=== PATIENT | female | born 1965 | race Caucasian/White ===

== ENCOUNTER 2023-04-23 13:40 | Emergency (ER) | payer BC, SELFPAY ==
[2023-04-23] VITALS (45 sets, daily range): BP systolic 117–164; BP diastolic 82–113; PULSE 58–79; RESP 5–22; TEMP 37.1; O2SAT 99
--- NOTE | 2023-04-23 13:45 | RT.EKG_ITS ---
APPROVED REPORT Exam: Resting ECG Reason for Exam: Chest Pain Patient Location: E HR:68 bpm ECG Measurements Heart Rate 68 AXIS MI 165 P 36 QRSd 95 QRS 53 QT 398 T 38 QTc 424 Conclusion Sinus rhythm...normal P axis, V-rate 60- 99 NSR, NL intervals, NL axis, No STEMI.
--- NOTE | 2023-04-23 14:15 | DI.CT_ITS ---
Exam(s) CT THORAX ABD/PEL CTA EXAM: CT THORAX ABD/PEL CTA CLINICAL HISTORY: chest pain to back, hypertension. TECHNIQUE: Imaging Protocol: Axial computed tomography images with coronal and sagittal reformatted images were created and reviewed CONTRAST MATERIAL: Intravenous: Omnipaque 350 Contrast volume:100 ml Oral: None COMPARISON: No exams were available for comparison FINDINGS: CHEST: AORTA: There is no evidence of aortic dissection. Diameter of the ascending thoracic aorta is normal . No dissection. Aortic arch appears unremarkable. Descending thoracic aorta unremarkable. Abdomi nal aorta also unremarkable with no aneurysm nor significant atherosclerotic involvement of the aorta and major vessels. Aortic bifurcation and aortoiliac segments are unremarkable. No aneurysmal dila tation of the iliac and common femoral arteries. LUNGS: No obvious pulmonary emboli. No confluent infiltrates nor evidence of pulmonary infarction. No ominous pulmonary nodules evident. There are no pleural effusions. No significant focal findings in the trachea and mainstem bronchi.. MEDIASTINUM: There is no hilar nor mediastinal adenopathy. Visualized thyroid unremarkable. CARDIAC: Heart size is normal. There is no pericardial effusion. No significant shift of the interv entricular septum. No evidence of hiatal hernia. ABDOMEN: There is no evidence of abdominal aortic aneurysm nor dissection.There is no aneurysmal dilatation of the common iliac arteries.The celiac and superior mesenteric arteries are patent.Inferior mesenteric artery is patent. Renal arteries are patent. No evidence of ischemic appearing bowel. There is no ascites. LIVER: There is a subcapsular hypodensity in the posterior right hepatic lobe measuring 1.2 x 1.0 cm. Has benign appearance probable cyst versus hemangioma but difficult to differentiate on this type o f arterial phase only study. There are no other obvious focal hepatic findings. GALLBLADDER/BILIARY: No obvious gallbladder pathology. CBD is not dilated. PANCREAS: No evidence of pancreatic mass nor dilatation of the pancreatic duct. SPLEEN: Spleen is not enlarged. There are no intrasplenic lesions. Splenic and portal veins are padgett nt. ADRENALS: There are no significant adrenal masses. KIDNEYS: No cysts evident. No calculi nor hydronephrosis. No solid renal masses. ABDOMINAL AORTA: The abdominal aorta is not enlarged. LYMPH NODES: There is no retroperitoneal nor para-aortic adenopathy. No obvious mesenteric masses. ABDOMINAL WALL: No evidence of significant anterior abdominal wall hernia. GI: There is no evidence of bowel obstruction, free air, nor abscess.The cecum is in the low right si de of the pelvis. No evidence of acute appendicitis. There is no evidence of significant sigmoid di verticular disease. PELVIS: LYMPH NODES: There is no intrapelvic nor inguinal adenopathy. GI: No evidence of appendicitis.No evidence of sigmoid diverticulitis. URINARY BLADDER: No calculi nor masses evident REPRODUCTIVE: Appears to be uterine fibroids. No abnormal adnexal masses nor free fluid in the pelvi s. OSSEOUS: No significant osseous lesions. No fractures. IMPRESSION: 1. No evidence of aortic dissection, as per request. No pericardial effusion. 2. No evidence of aneurysmal dilatation of the aorta and iliac arteries. Also no significant atheros clerotic involvement of the aorta and main branches. 3. No obvious pulmonary emboli. No infiltrates nor pleural effusions. 4. No acute findings in the abdomen and pelvis. 5. Probable small uterine fibroids. Called by myself to ER RADIATION DOSE DELIVERED: 1,125.58mGy.cm Total DLP DATA REPOSITORY: All CT scans at this facility are submitted to the National Radiology Data Registry (NRDR) Dose Index Registry (DIR) with the [employer] ([employer]). RADIATION OPTIMIZATION: All CT scans at this facility use at least one of these dose optimization te chniques: automated exposure control; mA and/or kV adjustment per patient size (includes targeted exa ms where dose is matched to clinical indication); or iterative reconstruction.
[2023-04-23 14:58] LABS: Abs Immature Grans 0.01 10^3/uL (0.0-0.06); Absolute Basophil Count 0.06 10^3/uL (0.0-0.2); Absolute Eosinophil Count 0.21 10^3/uL (0.0-0.7); Absolute Lymphocyte Count 2.53 10^3/uL (1.2-3.4); Absolute Monocyte Count 0.49 10^3/uL (0.1-0.8); Absolute Neutrophil Count 3.45 10^3/uL (1.2-6.7); Basophils % 0.9; Eosinophils % 3.1; HCT 43.4 % (36.0-46.0); HGB 14.6 g/dL (11.2-15.7); Immature Grans % 0.1; Lymphocytes % 37.5; MCH 28.8 pg (27.0-33.0); MCHC 33.6 % (32.0-36.0); MCV 86 fL (80-95); MPV 10.2 fL (8.0-11.0); Monocytes % 7.3; Neutrophils % 51.1; Platelet Count 292 10^3/uL (130-400); RBC 5.07 10^6/uL (3.93-5.22); RDW 13.8 % (11.7-14.6); RDW-SD 42.9 fL; WBC 6.75 10^3/uL (4.4-10.8)
[2023-04-23 15:22] LABS: ALT 42 U/L (14-59); AST 27 U/L (15-37); Alkaline Phosphatase 103 U/L (46-116); Anion Gap 8.8 mmol/L (3-11); BUN 12 mg/dL (7-18); Bilirubin, Total 0.3 mg/dL (0.2-1.0); CO2 27.2 mmol/L (21.0-32.0); CREATININE 0.8 mg/dL (0.55-1.02); Calcium 9.5 mg/dL (8.5-10.1); Chloride 104 mmol/L (98-107); Estimated GFR 85.35 (mL/min/1.73m2); Glucose 92 mg/dL (74-106); Magnesium 2.2 mg/dL (1.8-2.4); Potassium 3.6 mmol/L (3.5-5.1); Sodium 140 mmol/L (136-145); Total Protein 7.9 g/dL (6.4-8.2); Troponin I < 50 ng/L (<or=60)
--- NOTE | 2023-04-23 15:25 | W.ED.GENAD ---
Discharge Plan Discharge Details Chief Complaint: Chest Pain Primary Care Provider: Danyell Clark ED Provider: Neftaly Massey Medical Decision Making 57-year-old female here with chest pain that started last night that radiates to her back with associated elevated blood pressure from her baseline. Patient is saturating well in no respiratory distress. Consider ACS. Initial EKG was reviewed and interpreted by me: Please see report, nondiagnostic, no STEMI. Plan to check troponin and trend. Consider acute aortic dissection. Plan to obtain stat CTA of the thorax, abdomen and pelvis. --Labs reviewed and initial troponin negative. 1515 --notified by nursing that patient having increasing chest discomfort. I will give nitroglycerin sublingual. 1535 -- Care was signed out to oncoming physician, Dr. Barnes. Lab Data Lab results reviewed: Yes I reviewed the patient's lab results. Labs: Laboratory Tests Range/Units 04/23/23 04/23/23 14:07 14:07 WBC (4.4-10.8) 10^3/uL 6.75 RBC (3.93-5.22) 10^6/uL 5.07 Hgb (11.2-15.7) g/dL 14.6 Hct (36.0-46.0) % 43.4 MCV (80-95) fL 86 MCH (27.0-33.0) pg 28.8 MCHC (32.0-36.0) % 33.6 RDW (11.7-14.6) % 13.8 Plt Count (130-400) 10^3/uL 292 MPV (8.0-11.0) fL 10.2 Immature Gran % 0.1 Neutrophils % 51.1 Lymphocytes % 37.5 Monocytes % 7.3 Eosinophils % 3.1 Basophils % 0.9 Nucleated RBC % (0.0-0.3) % 0.0 Absolute Neutrophils (1.2-6.7) 10^3/uL 3.45 Absolute Lymphocytes (1.2-3.4) 10^3/uL 2.53 Absolute Monocytes (0.1-0.8) 10^3/uL 0.49 Absolute Eosinophils (0.0-0.7) 10^3/uL 0.21 Absolute Basophils (0.0-0.2) 10^3/uL 0.06 Sodium (136-145) mmol/L 140 Potassium (3.5-5.1) mmol/L 3.6 Chloride (98-107) mmol/L 104 Carbon Dioxide (21.0-32.0) mmol/L 27.2 Anion Gap (3-11) mmol/L 8.8 BUN (7-18) mg/dL 12 Creatinine (0.55-1.02) mg/dL 0.8 Est GFR (CKD-EPI 2020) (mL/min/1.73m2) 85.35 Glucose (74-106) mg/dL 92 Calcium (8.5-10.1) mg/dL 9.5 Magnesium (1.8-2.4) mg/dL 2.2 Total Bilirubin (0.2-1.0) mg/dL 0.3 AST (15-37) U/L 27 ALT (14-59) U/L 42 Alkaline Phosphatase (46-116) U/L 103 Troponin I (<or=60) ng/L < 50 Total Protein (6.4-8.2) g/dL 7.9 Albumin (3.4-5.0) g/dL 4.0 HPI General Mode of arrival: ambulatory. Date/Time Provider Initiated Documentation: 04/23/23 14:10. Limitations to Documentation: no limitations. Information obtained by: patient. HPI Narrative: 57-year-old female presents with chief complaint of chest pain. Patient notes substernal 6 out of 10 chest pain described as a pressure and stabbing sensation that radiates to her back. Symptoms started yesterday after playing tennis all day and persisted through the night. She has no associated shortness of breath. No leg swelling or calf pain. No abdominal pain, nausea or vomiting. Related Data Allergies Allergy/AdvReac Type Severity Reaction Status Date / Time No Known Drug Allergies Allergy Unverified 04/23/23 13:54 General Stated Complaint: Chest Pain BIRGIT: 3 Review of Systems All systems reviewed & are unremarkable except as noted in HPI and below Constitutional Constitutional: Denies fever(s) Cardiovascular Cardiovascular: Reports chest pain and Denies dyspnea Respiratory Respiratory: Denies dyspnea [facility] Social History Smoking/Tobacco Use Status: Never Smoking risk assessment performed?: Yes Exam Const General: cooperative and no acute distress HENMT Mouth: moist mucous membranes Eyes Conjunctivae: normal conjunctivae Sclera: normal sclerae Neck Neck: trachea midline and supple Resp Auscultation: clear to auscultation bilaterally, no rales, no rhonchi and no wheezes Cardio Rate: regular rate and not tachycardic Rhythm: regular rhythm GI Palpation: soft, not firm, no guarding, no masses, not rigid and nontender Skin General skin exam: no rashes or lesions noted Neuro General: patient alert, patient awake and tone normal Extrem General: no calf tenderness and no edema Other: hyperflexibility Psych Appearance: grossly normal Mental Status: mental status grossly normal Course Vital Signs Vital signs: Vital Signs Temperature 37.1 C 04/23/23 13:48 Pulse 72 04/23/23 13:48 Respiratory Rate 20 04/23/23 13:48 Blood Pressure 148/113 H 04/23/23 13:48 Pulse Oximetry 99 04/23/23 13:48 Temperature 37.1 C 04/23/23 13:48 Pulse 63 04/23/23 15:16 Pulse 65 04/23/23 15:20 Respiratory Rate 21 04/23/23 15:20 Respiratory Effort Normal, Non-Labored 04/23/23 14:08 Respiratory Depth Normal 04/23/23 14:08 Respiratory Pattern Normal 04/23/23 14:08 Blood Pressure 148/96 H 04/23/23 15:16 Blood Pressure Mean 115 04/23/23 15:16 Blood Pressure Position Sitting 04/23/23 13:48 Pulse Oximetry 99 04/23/23 13:48 Oxygen Delivery Method Room Air 04/23/23 13:48 Oxygen Flow Rate 0 04/23/23 13:48 Pain Level 4 04/23/23 14:08 Lab/Test Results Lab/Test Results: Laboratory Tests Range/Units 04/23/23 14:07 WBC (4.4-10.8) 10^3/uL 6.75 RBC (3.93-5.22) 10^6/uL 5.07 Hgb (11.2-15.7) g/dL 14.6 Hct (36.0-46.0) % 43.4 MCV (80-95) fL 86 MCH (27.0-33.0) pg 28.8 MCHC (32.0-36.0) % 33.6 RDW (11.7-14.6) % 13.8 Plt Count (130-400) 10^3/uL 292 MPV (8.0-11.0) fL 10.2 Immature Gran % 0.1 Neutrophils % 51.1 Lymphocytes % 37.5 Monocytes % 7.3 Eosinophils % 3.1 Basophils % 0.9 Nucleated RBC % (0.0-0.3) % 0.0 Absolute Neutrophils (1.2-6.7) 10^3/uL 3.45 Absolute Lymphocytes (1.2-3.4) 10^3/uL 2.53 Absolute Monocytes (0.1-0.8) 10^3/uL 0.49 Absolute Eosinophils (0.0-0.7) 10^3/uL 0.21 Absolute Basophils (0.0-0.2) 10^3/uL 0.06
[2023-04-23] MEDS: nitroGLYcerin 0.4 MG TAB SL (15:52)
--- NOTE | 2023-04-23 16:00 | RT.EKG_ITS ---
APPROVED REPORT Exam: Resting ECG Reason for Exam: Chest Pain Patient Location: E HR:64 bpm ECG Measurements Heart Rate 64 AXIS AL 167 P 38 QRSd 93 QRS 70 QT 430 T 51 QTc 444 Conclusion Sinus rhythm...normal P axis, V-rate 60- 99 Pain free EKG - NSR, normal intervals, no changes from previous. NO STEMI
--- NOTE | 2023-04-23 16:06 | ED.PROG_ITS ---
Date of service: 04/23/23 Time of Service: 16:06 Medical Decision Making I have received sign out. Patient was in x-ray when I went to examine her. I was just notified by the nursing staff that after she received a nitro she said that her chest discomfort was worse and she is refusing any further nitro. She did drop her pressure to 120 systolic after 1 nitroglycerin. I have ordered a repeat EKG, which looks unchanged. I have seen and examined the patient. She is currently pain-free. I have discussed the CT with Dr. Myers the radiologist who says she has no evidence of dissection or PE. We are awaiting a second troponin. Medical Records Medical records reviewed: Yes I reviewed the patient's medical records. Imaging Data Radiologic Study: Imaging: CT Scan (CTA chest abdomen and pelvis with IV contrast) Radiologist's impression: IMPRESSION: 1. No evidence of aortic dissection, as per request.? No pericardial effusion. 2. No evidence of aneurysmal dilatation of the aorta and iliac arteries.? Also no significant atherosclerotic involvement of the aorta and main branches. 3. No obvious pulmonary emboli.? No infiltrates nor pleural effusions. 4. No acute findings in the abdomen and pelvis. 5.? Probable small uterine fibroids. Lab Data Lab results reviewed: Yes I reviewed the patient's lab results. Lab results narrative: No significant abnormalities ECG Data Attestation: I personally reviewed and interpreted this ECG (s) as follows: Prior ECG tracings: available for review Narrative I have advised the patient to follow-up with their primary care provider and to return here for any new or worrisome symptoms. The patient has had a stress test in the past which was negative. I have advised her to take an enteric- coated baby aspirin daily and to return if the symptoms recur. We discussed other possible etiologies including GI causes. I have advised that she follow-u p for repeat stress test and echocardiogram arranged by her primary care provider and to return here for any new or worrisome symptoms. The patient and her voiced understanding agree with the discharge plan. All their questions and concerns were addressed prior to discharge Sign Out Sign Out Data: Sign Out Comment: Follow-up on CTA of the thorax, abdomen and pelvis. Follow-up on labs including delta troponin. Reassess patient for disposition. Last updated by Neftaly Massey MD at 09/13/23 15:45 Discharge Plan Disposition Patient Disposition: Home Condition: Improving Discharge Details Clinical Impression: Chest pain Primary Care Provider: Danyell Clark ED Provider: Alma Barnes Home Meds and New Rx's Prescriptions: New aspirin [Enteric Coated Aspirin] 81 mg tablet,delayed release (DR/EC) 81 mg PO DAILY Qty: 30 0RF Discharge Instructions Instructions: Chest Pain (ED) Additional Instructions: 1. Call your primary care provider tomorrow for a follow-up appointment and recheck. Ask about a referral to cardiology and/or additional stress testing and/or echocardiogram. 2. Take 1 enteric-coated baby aspirin daily until you see your primary care provider and inquire whether you should continue taking them. 3. Return to the emergency department for any new or recurrent symptoms. Discharge Data Discharge Physician: Alma Barnes
[2023-04-23 18:05] LABS: Troponin I < 50 ng/L (<or=60)
== END 2023-04-23 18:36 | disposition home or self-care (01) ==
PROVIDERS: Student in an Organized Health Care Education/Training Program; Emergency Provider Emergency Medicine Emergency Medical Services; PCP Internal Medicine
DX: R07.9 Chest pain, unspecified (principal); I10 Essential (primary) hypertension
CPT/HCPCS: 36415; 71275; 80053; 93005; 99285; 74174; 83735; 84484; 85025; 93010